=== PATIENT | male | born 1990 | race Caucasian/White ===

== ENCOUNTER 2018-04-13 06:44 | Emergency (ER) | payer OTHER ==
--- NOTE | 2018-04-13 06:59 | EDPHY ---
HPI/HX/ROS/PE/MDM Narrative: CHIEF COMPLAINT: Left knee injury HISTORY OF PRESENT ILLNESS: The patient is a 28 y/o male complaining of left knee injury after snowboarding yesterday. The patient was at a stop when another snowboarder hit him in the the lateral left knee and the knee was bent inward (valgus stress). Upon impact he heard a pop. He was knocked to the ground but denies coming out of his bindings upon impact. He was wearing a helmet and denies hitting his head or loss of consciousness. He was able to board down, but the pain has increased. Due to the pain he has had difficulty bearing weight. Also describes a feeling of instability in the knee. The pain increases when he bends his leg. He denies taking any pain medications. Denies other injuries. No fever, chills, chest pain, shortness of breath, palpitations, vomiting, diarrhea, urinary complaints, headache, lightheadedness. REVIEW OF SYSTEMS: Aside from elements discussed in the HPI, a comprehensive 10-point review of systems was reviewed and is negative. PAST MEDICAL HISTORY: Denies SOCIAL HISTORY: Lives in [place], single, employed VITAL SIGNS: Reviewed by me EXTREMITIES: Left Knee: Obvious swelling over the medial aspect, slight laxity and pain with valgus stress at the medial compartment, no joint line tenderness on lateral aspect. No patellar tenderness, negative anterior drawer. Extensor mechanism intact. Range of motion is normal throughout in other extremities. NEURO: Alert and oriented, grossly nonfocal. SKIN: Warm and dry, no rash. PSYCHIATRIC: Normal mentation, no agitation. Portions of this note were transcribed by a medical manager. I personally performed a history, physical exam, medical decision making, and confirmed accuracy of information the transcribed note. ED Course: The patient is a 28 y/o male presenting with a left knee injury after snowboarding yesterday. On exam he has left knee: swelling medially, laxity, pain, and valgus stress at the medial compartment, no joint line tenderness on lateral aspect, no patellar tenderness, and a negative anterior drawer. Left knee x-ray ordered; 60mg IM Toradol administered. 0745: I reviewed patient's knee x-ray which does not reveal any osseous injury. 0805: Reassessed patient and discussed imaging findings. Patient will be placed in a knee immobilizer. I have advised him to take [place] and ibuprofen for his pain. I have also advised him to follow up with an orthopedic surgeon. Return precautions provided; patient is comfortable with this plan. MDM: Differential diagnosis for the patient's injury was considered including but not limited to contusion, abrasion, fracture, open fracture, internal derangements, ligamentous injury, medial cruciate injury, or dislocation. - Data Points Imaging Results: Knee Xray: Impression: Mild suprapatellar joint effusion. No evidence for acute fracture. Dictated By: London Keene MD Imaging: I viewed and interpreted images myself Medications Given: Discontinued Medications Ketorolac Tromethamine (Toradol) 60 mg IM EDNOW ONE Stop: 04/13/18 07:09 Last Admin: 04/13/18 07:23 Dose: 60 mg General Time Seen by Provider: 04/13/18 06:55 Initial Vital Signs: Initial Vital Signs Temperature (C) 36.9 C 04/13/18 06:47 Heart Rate 95 04/13/18 06:47 Respiratory Rate 18 04/13/18 06:47 Blood Pressure 148/85 H 04/13/18 06:47 O2 Sat (%) 96 04/13/18 06:47 O2 Delivery Mode Room Air Allergies/Adverse Reactions: No Known Allergies Allergy (Unverified 04/13/18 06:50) Home Medications: Medication Instructions Recorded Hydrocodone/APAP 5/325 [[place] 1 tab PO Q6H PRN #10 tab 04/13/18 5/325 (RX)] Departure - Departure Disposition: Home, Routine, Self-Care Clinical Impression: Left knee sprain Qualifiers: Encounter type: initial encounter Involved ligament of knee: medial collateral ligament Qualified Code(s): S83.412A - Sprain of medial collateral ligament of left knee, initial encounter Condition: Good Instructions: Knee Sprain (ED) Additional Instructions: 1. Rest, ice, elevation. 2. Follow up with an orthopedic surgeon within one week if pain persists. 3. Return to the emergency department for worsening pain, swelling, numbness, weakness or other concerns. 4. Wear knee immobilizer for comfort, weight bear as tolerated. 5. Take [place] as prescribed for severe pain. 6. I recommend Ibuprofen (Motrin, Advil) or Naproxen Sodium (Aleve) for pain and anti-inflammatory effects. You may take either one, but do not take both. Your dose is: Ibuprofen 600 mg every 6-8 hours with food. OR Naproxen Sodium (Aleve) 220 mg every 12 hours. Referrals: Jovani Warner MD [Medical Doctor] - As per Instructions Prescriptions: Hydrocodone/APAP 5/325 [[place] 5/325 (RX)] 1 tab PO Q6H PRN #10 tab PRN Reason: Pain Report Scribed for: Sangeetha Justin Report Scribed by: Rosa Mayers Date of Report: 04/13/18 Time of Report: 06:59
[2018-04-13] MEDS ORDERED: KETOROLAC 30 MG/1 ML SDV IM ONE (07:08)
[2018-04-13 08:17] VITALS: BP 138/72
== END 2018-04-13 08:14 | disposition home or self-care (01) ==
DX: S83.412A Sprain of medial collateral ligament of left knee, initial encounter (principal); V00.318A Other snowboard accident, initial encounter; Y92.9 Unspecified place or not applicable; Y93.23 Activity, snow (alpine) (downhill) skiing, snowboarding, sledding, tobogganing and snow tubing; Y99.9 Unspecified external cause status
CPT/HCPCS: J1885; L1830